=== PATIENT | male | born 1945 ===

== ENCOUNTER 2018-11-27 09:52 | Day surgery (SDC) | payer MEDICARE, OTHER ==
[~2018-11-27] VITALS: Ht 180.3 cm; Wt 119.5 kg
[~2018-11-27 09:52] MED LIST: ACET325 PO; ALEVE220 MG PO; ASPI81CH PO; ATOR10 PO; CHLORPHENIRAMINE PO; CLOB.05TC TOP; CYCL10 PO; DULO30 PO; LOSARTAN POTASS50 MG PO; OMEP40CA12 PO; Ranitidine HCl300 M1 PO; SIME80CH PO
[2018-11-27] MEDS ORDERED: Toprol Xl50 MG PO (11:26)
--- NOTE | 2018-11-27 12:53 | NUR ---
11/27/18 1253 Ana Marshall 6ML NACL USED FOR POLYP REMOVAL
== END 2018-11-27 13:20 | disposition home or self-care (01) ==
LOC: ORSCSDS 09:52
PROVIDERS: Internal Medicine Gastroenterology
PROC: 3E0H8GC Introduction of Other Therapeutic Substance into Lower GI, Via Natural or Artificial Opening Endoscopic (ICD-10-PCS; principal; 2018-11-27 11:30)
PROC: 0DBL8ZX Excision of Transverse Colon, Via Natural or Artificial Opening Endoscopic, Diagnostic (ICD-10-PCS; principal; 2018-11-27 11:30)
DX: Z12.11 Encounter for screening for malignant neoplasm of colon (principal); D12.3 Benign neoplasm of transverse colon; K57.30 Diverticulosis of large intestine without perforation or abscess without bleeding; K64.8 Other hemorrhoids; I10 Essential (primary) hypertension; Z87.891 Personal history of nicotine dependence; E78.5 Hyperlipidemia, unspecified; Z79.899 Other long term (current) drug therapy
CPT/HCPCS: 88305; J2704; J7120

== ENCOUNTER 2025-04-02 08:05 | Inpatient (IN) | payer OTHER, MEDICARE ==
[~2025-04-02] VITALS: Ht 182.9 cm; Wt 119.4 kg
[2025-04-02] VITALS (15 sets, daily range): BP systolic 113–137; BP diastolic 48–89
[~2025-04-02 08:05] MED LIST changes: +Toprol Xl50 MG PO
[2025-04-02] MEDS ORDERED: NS 500 ML IV SCH (09:05)
[2025-04-02] MEDS ORDERED: Ketorolac Tromethamine 30mg Vial IV ONE (09:05)
[2025-04-02] MEDS ORDERED: NS 1,000 ML IV SCH ×2 (09:15→12:50)
[2025-04-02] MEDS ORDERED: Ondansetron HCl 2 MG / ML 2ML Vial IV ONE (09:15)
[2025-04-02 10:27] LABS: Influenza A, PCR NEGATIVE (NEGATIVE); Influenza B, PCR NEGATIVE (NEGATIVE); Resp Syncytial Virus, PCR NEGATIVE (NEGATIVE); SARS-Cov-2 (COVID-19) PCR, MMC NEGATIVE (NEGATIVE)
[2025-04-02 10:37] LABS: BASOPHILS ABSOLUTE AUTO 0.03 K/mm3 (0.00-0.23); BASOPHILS PERCENT AUTO 0 % (0-2); EOSINOPHILS ABSOLUTE AUTO 0.00 K/mm3 (0.00-0.68); EOSINOPHILS PERCENT AUTO 0 % (0-6); Hematocrit 35.3 % (37.0-53.0); Hemoglobin 11.1 g/dL (13.5-17.5); IMMATURE GRAN ABSOLUTE AUTO 0.22 K/mm3 (0.00-0.10); IMMATURE GRAN PERCENT AUTO 2 % (0-1); LYMPHOCYTES ABSOLUTE AUTO 0.25 K/mm3 (0.84-5.20); LYMPHOCYTES PERCENT AUTO 2 % (21-46); MONOCYTES ABSOLUTE AUTO 0.23 K/mm3 (0.16-1.47); MONOCYTES PERCENT AUTO 2 % (4-13); Mean Corpuscular HGB Conc 31.4 g/dL (31.5-36.5); Mean Corpuscular Volume 93 fL (80-100); NEUTROPHILS ABSOLUTE AUTO 12.02 K/mm3 (1.96-9.15); NEUTROPHILS PERCENT AUTO 94 % (41-73); NRBC ABSOLUTE 0.00 K/mm3 (0.00-0.02); NRBC Auto 0.0 /100 WBC (0.0-0.2); Platelet Count 219 K/mm3 (150-400); RDW Coefficient Variation 12.8 % (11.7-14.2); RDW Standard Deviation 43.8 fL (35.1-46.3)
[2025-04-02 11:00] LABS: Alanine Aminotransfer (ALT/SGP 28.0 U/L (12-78); Albumin, Blood 3.0 g/dL (3.4-5.0); Albumin/Globulin Ratio 0.8 (0.8-1.8); Anion Gap 11.0 mmol/L (3-11); Aspartate Aminotrans (AST/SGOT 32.0 U/L (12-37); Bilirubin, Total 1.0 mg/dL (0.1-1.0); Blood Urea Nitrogen 21.0 mg/dL (8-24); CO2, Blood 25.0 mmol/L (21-32); Calcium, Blood 9.0 mg/dL (8.5-10.1); Chloride, Blood 103.0 mmol/L (98-108); Creatinine, Blood 1.51 mg/dL (0.60-1.20); Globulin, Blood 3.8 g/dL (2.2-4.0); Glucose, Blood 104.0 mg/dL (70-99); Magnesium, Blood 2.1 mg/dL (1.6-2.4); Potassium, Blood 3.7 mmol/L (3.5-5.5); Sodium, Blood 135.0 mmol/L (136-145); Total Protein, Blood 6.8 g/dL (6.4-8.2)
[2025-04-02] MEDS ORDERED: DiphenhydrAMINE HCl 50 MG/ML 1ML Vial IV ONE (11:20)
[2025-04-02] MEDS ORDERED: Piperacillin/Tazobactam Sod 3.375 GM in NS 100 ML IV ONE (12:50)
[2025-04-02 12:52] LABS: Source, Urine Clean Catch
[2025-04-02 13:02] LABS: Glucose Qualitative, Urine Neg (Neg); Ketones, Urine 1+ (Neg); Leukocyte Esterase, Urine 1+ (Neg); Protein, Urine 3+ (Neg); Specific Gravity, Urine 1.020 (1.003-1.022); Urobilinogen, Urine 1+ (Normal)
[2025-04-02] MEDS ORDERED: Ondansetron HCl 2 MG / ML 2ML Vial IV PRN ×2 (13:15→17:15)
[2025-04-02] MEDS ORDERED: FLU VACC TS2025-26(6MOS UP)/PF 45 MCG/0.5 ML SYRINGE IM SCH (13:15)
[2025-04-02 13:26] LABS: Bilirubin, Urine 1+ (Neg); Color, Urine Orange (P-Yellow)
[2025-04-02 13:30] LABS: Red Blood Cells, Urine 0-2 /hpf (0-2)
[2025-04-02] MEDS ORDERED: CefTRIAXone Sodium 1,000 MG in NS 100 ML IV SCH (13:30)
[2025-04-02] MEDS ORDERED: MetroNIDAZOLE 500MG/NS 100 ml 100 ML IV SCH (14:00)
[2025-04-02] MEDS ORDERED: PROZAC2010 PO (14:10)
[2025-04-02] MEDS ORDERED: EUTHYROX50 MC1 PO (14:11)
[2025-04-02] MEDS ORDERED: METOPROLOL SUCC25 MG PO (14:12)
[2025-04-02] MEDS ORDERED: Bupivacaine 0.5% HCl 5 MG/ML 30MLVIAL ONE (14:47)
[2025-04-02] MEDS ORDERED: Etomidate 2MG / ML 10ML Vial ONE (15:01)
[2025-04-02] MEDS ORDERED: Metoclopramide HCl 5MG / ML 2ML Vial ONE (15:10)
[2025-04-02] MEDS ORDERED: Ondansetron HCl 2 MG / ML 2ML Vial ONE (15:10)
[2025-04-02] MEDS ORDERED: FentaNYL Citrate 50 MCG/ML 2 ML Injection ONE (15:11)
[2025-04-02] MEDS ORDERED: Labetalol HCL 5 MG/ML 4ML Injection (Single Dose) ONE (15:46)
[2025-04-02] MEDS ORDERED: Sugammadex Sodium 200 MG/2ML SDV (100 MG/ML) ONE (16:38)
[2025-04-02] MEDS ORDERED: HYDROcodone 5-APAP 325 TAB PO PRN (17:05)
[2025-04-02] MEDS ORDERED: FentaNYL Citrate 50 MCG/ML 2 ML Injection IV PRN ×4 (17:10→17:25)
[2025-04-02] MEDS ORDERED: Metoclopramide HCl 5MG / ML 2ML Vial IV PRN (17:15)
[2025-04-02] MEDS ORDERED: Lactobacil 2-S.Thermo-Bifido 1 1 Cap PO SCH (21:00)
[2025-04-03 03:46] VITALS: BP 135/68
[2025-04-03 04:06] LABS: Hematocrit 35.2 % (37.0-53.0); Hemoglobin 10.9 g/dL (13.5-17.5); Mean Corpuscular HGB Conc 31.0 g/dL (31.5-36.5); Mean Corpuscular Volume 94 fL (80-100); NRBC ABSOLUTE 0.00 K/mm3 (0.00-0.02); NRBC Auto 0.0 /100 WBC (0.0-0.2); Platelet Count 220 K/mm3 (150-400); RDW Coefficient Variation 13.1 % (11.7-14.2); RDW Standard Deviation 45.4 fL (35.1-46.3)
[2025-04-03 04:40] LABS: Alanine Aminotransfer (ALT/SGP 91.0 U/L (12-78); Albumin, Blood 2.7 g/dL (3.4-5.0); Albumin/Globulin Ratio 0.7 (0.8-1.8); Anion Gap 8.0 mmol/L (3-11); Aspartate Aminotrans (AST/SGOT 113.0 U/L (12-37); Bilirubin, Total 0.5 mg/dL (0.1-1.0); Blood Urea Nitrogen 24.0 mg/dL (8-24); CO2, Blood 25.0 mmol/L (21-32); Calcium, Blood 8.6 mg/dL (8.5-10.1); Chloride, Blood 108.0 mmol/L (98-108); Creatinine, Blood 0.92 mg/dL (0.60-1.20); Globulin, Blood 4.1 g/dL (2.2-4.0); Glucose, Blood 173.0 mg/dL (70-99); Magnesium, Blood 2.3 mg/dL (1.6-2.4); Potassium, Blood 4.7 mmol/L (3.5-5.5); Sodium, Blood 136.0 mmol/L (136-145); Total Protein, Blood 6.8 g/dL (6.4-8.2)
[2025-04-03 04:43] LABS: BAND PERCENT MAN 20 % (0-8); BASOPHILS ABSOLUTE MAN 0.00 K/mm3 (0.00-0.23); BASOPHILS PERCENT MAN 0 % (0-2); EOSINOPHILS ABSOLUTE MAN 0.00 K/mm3 (0.00-0.68); EOSINOPHILS PERCENT MAN 0 % (0-6); LYMPHOCYTES ABSOLUTE MAN 0.70 K/mm3 (0.84-5.20); LYMPHOCYTES PERCENT MAN 4 % (21-46); MONOCYTES ABSOLUTE MAN 0.52 K/mm3 (0.16-1.47); MONOCYTES PERCENT MAN 3 % (4-13); MYELOCYTE ABSOLUTE MAN 0.35 K/mm3 (0.00-0.00); MYELOCYTE PERCENT MAN 2 % (0-0); NEUTROPHILS ABSOLUTE MAN 15.96 K/mm3 (1.96-9.15); SEG NEUTROPHILS PERCENT MAN 71 % (41-73)
--- NOTE | 2025-04-03 05:44 | NUR ---
SHIFT SUMMARY PT A&O X3, STATES THAT IS HIS BASELINE. PT HAS BEEN DROWSY SINCE SURGERY YESTERDAY BUT AWAKENS TO VERBAL STIMULI. VSS, AFEBRILE, SPO2 >92% ON 5L OXIMASK. RECTAL THERMOMETER PLACED DUE TO INACCURATE TEMPORAL TEMPERATURE DUE TO DIAPHORESIS. HE DENIES FEELING SOB. DENIES CP OR PRESSURE. 4 INCISION SITE ON ABDOMEN, ARVIND DRAIN TO RIGHT ABDOMEN. PAIN MEDICATED PER EMAR. CALL LIGHT IN REACH, BREATHING IS EVEN AND UNLABORED.
[2025-04-03 07:33] VITALS: BP 141/69
[2025-04-03] MEDS ORDERED: CefTRIAXone Sodium 2,000 MG in NS 100 ML IV ONE (08:15)
[2025-04-03 08:57] LABS: EOS, Urine 0.0 % (0.0-1.0); Eosinophils-Raw #,Urine 0; White Blood Cells Urine 50-100 /hpf (0-5)
[2025-04-03] MEDS ORDERED: Pantoprazole Sodium 40 MG Injection IV SCH (09:00)
[2025-04-03] MEDS ORDERED: Enoxaparin 40 MG/0.4 ML SYR SC SCH (09:00)
[2025-04-03 11:07] VITALS: BP 137/71
--- NOTE | 2025-04-03 14:22 | NUR ---
MORNING NOTE PT IS A&OX 3-4, COOPERATIVE WITH CARE, AND ABLE TO APPROPRIATELY EXPRESS NEEDS. HE TRANSFERS IN WITH 1-2 ASST. PT WAS ON 5L O2 VIA OXI MASK THIS AM AT SHIFT CHANGE. TANK ZAVALETA AND THIS RN TITRATED HIM DOWN TO RM AIR THIS MORNING, BUT HE SATTED AT ABOUT 89-90%, SO HE WAS RETURNED TO 1L O2 NC. LATER THIS MORNING, PT DESATTED TO 88% WHILE SLEEPING AND WAS INCREASED TO 2L O2 NC WHERE HE RETURNED TO SATTING ABOVE 92%. PT REMAINS ON 2L AT THIS TIME DUE TO FREQUENT NAPPING OFF AND ON. PT IS 1 DAY POST OP FOR LAP. MARVIN AND HAS A ARVIND DRAIN IN PLACE AT R. ABD DRAINING SEROSANGUINEOUS FLUID. THREE LAP. INCISION SITES ON ABD ARE C/D/I. PT HAS HELD DOWN CLEAR FLUIDS WELL AND CAN ADVANCE DIET TOLERATED. SINUS RHYTHM MAINTAINED IN 70-80s WITH STABLE BPs. PT TO TRANSFER TO SURGICAL UNIT RM 216 THIS SHIFT. IS AT BEDISDE AND UPDATED ON CARE. SEE NOTES FOR UPDATES.
[2025-04-03 15:53] VITALS: BP 143/78
--- NOTE | 2025-04-03 17:50 | NUR ---
TRANSFER: REPORT RECEIVED FROM [employer] WORKER. PT TO UNIT AT ABOUT 1730. A/O, PT FOLLOWS COMMANDS. SURGICAL SITES WNL, ARVIND COMPRESSED. PT NOW SITTING UP TO EAT FULL LIQUIDS. CALL LIGHT IN REACH
[2025-04-03 20:01] VITALS: BP 132/71
[2025-04-03] MEDS ORDERED: Lactobacil 2-S.Thermo-Bifido 1 1 Cap PO SCH (21:00)
[2025-04-04 03:56] VITALS: BP 140/65
[2025-04-04 05:07] LABS: BASOPHILS ABSOLUTE AUTO 0.03 K/mm3 (0.00-0.23); BASOPHILS PERCENT AUTO 0 % (0-2); EOSINOPHILS ABSOLUTE AUTO 0.00 K/mm3 (0.00-0.68); EOSINOPHILS PERCENT AUTO 0 % (0-6); Hematocrit 32.4 % (37.0-53.0); Hemoglobin 10.2 g/dL (13.5-17.5); IMMATURE GRAN ABSOLUTE AUTO 0.08 K/mm3 (0.00-0.10); IMMATURE GRAN PERCENT AUTO 1 % (0-1); LYMPHOCYTES ABSOLUTE AUTO 0.68 K/mm3 (0.84-5.20); LYMPHOCYTES PERCENT AUTO 5 % (21-46); MONOCYTES ABSOLUTE AUTO 1.17 K/mm3 (0.16-1.47); MONOCYTES PERCENT AUTO 8 % (4-13); Mean Corpuscular HGB Conc 31.5 g/dL (31.5-36.5); Mean Corpuscular Volume 93 fL (80-100); NEUTROPHILS ABSOLUTE AUTO 12.47 K/mm3 (1.96-9.15); NEUTROPHILS PERCENT AUTO 86 % (41-73); NRBC ABSOLUTE 0.00 K/mm3 (0.00-0.02); NRBC Auto 0.0 /100 WBC (0.0-0.2); Platelet Count 217 K/mm3 (150-400); RDW Coefficient Variation 13.2 % (11.7-14.2); RDW Standard Deviation 44.9 fL (35.1-46.3)
[2025-04-04 05:30] LABS: Alanine Aminotransfer (ALT/SGP 66.0 U/L (12-78); Albumin, Blood 2.3 g/dL (3.4-5.0); Albumin/Globulin Ratio 0.6 (0.8-1.8); Anion Gap 5.0 mmol/L (3-11); Aspartate Aminotrans (AST/SGOT 53.0 U/L (12-37); Bilirubin, Total 0.3 mg/dL (0.1-1.0); Blood Urea Nitrogen 26.0 mg/dL (8-24); CO2, Blood 28.0 mmol/L (21-32); Calcium, Blood 8.3 mg/dL (8.5-10.1); Chloride, Blood 107.0 mmol/L (98-108); Creatinine, Blood 0.69 mg/dL (0.60-1.20); Globulin, Blood 3.6 g/dL (2.2-4.0); Glucose, Blood 128.0 mg/dL (70-99); Potassium, Blood 4.2 mmol/L (3.5-5.5); Sodium, Blood 136.0 mmol/L (136-145); Total Protein, Blood 5.9 g/dL (6.4-8.2)
[2025-04-04 07:33] VITALS: BP 167/77
--- NOTE | 2025-04-04 07:50 | NUR ---
SHIFT SUMMARY NOC. PT POD 2 FOR LAP MARVIN. LAP SITES C/D/I, ARVIND PRODUCING S/S OUTPUT. PT MEDICATED FOR PAIN WITH REPORTED RELIEF OF SX. PT VOIDING URINE. MAKES NEEDS KNOWN, CALL LIGHT IN REACH.
[2025-04-04 13:17] LABS: Influenza A, PCR NEGATIVE (NEGATIVE); Influenza B, PCR NEGATIVE (NEGATIVE); Resp Syncytial Virus, PCR NEGATIVE (NEGATIVE); SARS-Cov-2 (COVID-19) PCR, MMC NEGATIVE (NEGATIVE)
[2025-04-04 15:28] VITALS: BP 133/64
--- NOTE | 2025-04-04 16:17 | NUR ---
SHIFT SUMMARY POD2 LAP MARVIN WITH ARVIND DRAIN. LAPS SITES X4 C/D/I. PATIENT IS AOX4, SBA TO IND IN ROOM. ON 1L NC, CONT. PULSE OX IN PLACE. SATS REMAIN 90-93%. PATIENT USING IS AT BEDSIDE AND UP IN THE CHAIR T/O DAY. PATIENT SHOWERED TODAY, SPOUSE WAS IN TO VISIT. CONTINUE IV ABX, PAIN MANAGED WITH NORCO PO. VOIDING, REPORTS PASSING FLATUS. DENIES N/V. USES CALL LIGHT APPROPRIATELY. CALL LIGHT IN REACH VSS.
[2025-04-04 19:37] VITALS: BP 123/67
[2025-04-05 04:27] VITALS: BP 125/97
[2025-04-05 07:10] VITALS: BP 152/88
[2025-04-05 07:42] LABS: BASOPHILS ABSOLUTE AUTO 0.02 K/mm3 (0.00-0.23); BASOPHILS PERCENT AUTO 0 % (0-2); EOSINOPHILS ABSOLUTE AUTO 0.10 K/mm3 (0.00-0.68); EOSINOPHILS PERCENT AUTO 1 % (0-6); Hematocrit 35.3 % (37.0-53.0); Hemoglobin 10.9 g/dL (13.5-17.5); IMMATURE GRAN ABSOLUTE AUTO 0.10 K/mm3 (0.00-0.10); IMMATURE GRAN PERCENT AUTO 1 % (0-1); LYMPHOCYTES ABSOLUTE AUTO 0.93 K/mm3 (0.84-5.20); LYMPHOCYTES PERCENT AUTO 10 % (21-46); MONOCYTES ABSOLUTE AUTO 0.97 K/mm3 (0.16-1.47); MONOCYTES PERCENT AUTO 10 % (4-13); Mean Corpuscular HGB Conc 30.9 g/dL (31.5-36.5); Mean Corpuscular Volume 95 fL (80-100); NEUTROPHILS ABSOLUTE AUTO 7.62 K/mm3 (1.96-9.15); NEUTROPHILS PERCENT AUTO 78 % (41-73); NRBC ABSOLUTE 0.00 K/mm3 (0.00-0.02); NRBC Auto 0.0 /100 WBC (0.0-0.2); Platelet Count 230 K/mm3 (150-400); RDW Coefficient Variation 13.2 % (11.7-14.2); RDW Standard Deviation 46.0 fL (35.1-46.3)
[2025-04-05 08:03] LABS: Alanine Aminotransfer (ALT/SGP 59.0 U/L (12-78); Albumin, Blood 2.6 g/dL (3.4-5.0); Albumin/Globulin Ratio 0.7 (0.8-1.8); Anion Gap 7.0 mmol/L (3-11); Aspartate Aminotrans (AST/SGOT 37.0 U/L (12-37); Bilirubin, Total 0.5 mg/dL (0.1-1.0); Blood Urea Nitrogen 22.0 mg/dL (8-24); CO2, Blood 29.0 mmol/L (21-32); Calcium, Blood 8.3 mg/dL (8.5-10.1); Chloride, Blood 105.0 mmol/L (98-108); Creatinine, Blood 0.76 mg/dL (0.60-1.20); Globulin, Blood 3.9 g/dL (2.2-4.0); Glucose, Blood 91.0 mg/dL (70-99); Potassium, Blood 4.0 mmol/L (3.5-5.5); Sodium, Blood 137.0 mmol/L (136-145); Total Protein, Blood 6.5 g/dL (6.4-8.2)
--- NOTE | 2025-04-05 10:39 | NUR ---
DR MOTTA BY, ARVIND DRAIN REMOVED.
[2025-04-05] MEDS ORDERED: CefTRIAXone Sodium 2,000 MG in NS 100 ML IV SCH (12:41)
[2025-04-05] MEDS ORDERED: ALUM-MAG HYDROX30 M2 PO (13:17)
--- NOTE | 2025-04-05 13:34 | NUR ---
DISCHARGE NOTE PT IS A/OX4. PT IS TOLERATING PO INTAKE DENIES N/V. PAIN IS MANAGED PER EMAR. IV REMOVED. DC EDUCATION GIVEN TO PT AND SPOUSE. BOTH VERBALIZED UNDERSTANDING. PT HAS ALL PERSONAL BELONGINGS. PT REFUSED WC RIDE OUT. SURGICAL SITES C/D/I.
== END 2025-04-05 13:40 | disposition home or self-care (01) | DRG 853 ==
LOC: ER 08:05 → ERHOLD 08:06 → PCU 08:06 → SURS 04-03 14:22 → PCU 04-03 14:22 → SURS 04-03 17:04
PROVIDERS: Student in an Organized Health Care Education/Training Program; Surgery; ADMIT Internal Medicine
PROC: 3E03329 Introduction of Other Anti-infective into Peripheral Vein, Percutaneous Approach (ICD-10-PCS; 2025-04-02)
PROC: 0FT44ZZ Resection of Gallbladder, Percutaneous Endoscopic Approach (ICD-10-PCS; principal; 2025-04-02 15:30)
DX: A41.51 Sepsis due to Escherichia coli [E. coli] (principal); J96.01 Acute respiratory failure with hypoxia; N17.9 Acute kidney failure, unspecified; K80.00 Calculus of gallbladder with acute cholecystitis without obstruction; N39.0 Urinary tract infection, site not specified; R65.20 Severe sepsis without septic shock; I10 Essential (primary) hypertension; D64.9 Anemia, unspecified; M54.50 Low back pain, unspecified; G89.29 Other chronic pain; E03.9 Hypothyroidism, unspecified; E78.5 Hyperlipidemia, unspecified; K21.9 Gastro-esophageal reflux disease without esophagitis; Z87.891 Personal history of nicotine dependence; Z79.82 Long term (current) use of aspirin; Z79.899 Other long term (current) drug therapy; Z98.890 Other specified postprocedural states; Z88.5 Allergy status to narcotic agent; Z88.8 Allergy status to other drugs, medicaments and biological substances
CPT/HCPCS: 36415; 71045; 71046; 74177; 80053; 81001; 82570; 83605; 83690; 83735; 83880; 84300; 84540; 85025; 87040; 87077; 87086; 87186; 87205; 87637; 88304; 93005; 93010; 94760; 94761; 94762; 96361; 96374-59; 96375; 99285-25; A9270; G0378; J0696; J1200; J1650; J1885; J2405; J2470; J2543; J2765; J2919; J3010; J7030; J7120; Q9967

== ENCOUNTER 2025-04-16 10:45 | Emergency (ER) | payer OTHER ==
[~2025-04-16] VITALS: Ht 177.8 cm; Wt 117.9 kg
[~2025-04-16 10:45] MED LIST changes: +ALUM-MAG HYDROX30 M2 PO; +EUTHYROX50 MC1 PO; +METOPROLOL SUCC25 MG PO; +PROZAC2010 PO
[2025-04-16 11:41] LABS: BASOPHILS ABSOLUTE AUTO 0.12 K/mm3 (0.00-0.23); BASOPHILS PERCENT AUTO 2 % (0-2); EOSINOPHILS ABSOLUTE AUTO 0.24 K/mm3 (0.00-0.68); EOSINOPHILS PERCENT AUTO 4 % (0-6); Hematocrit 37.8 % (37.0-53.0); Hemoglobin 11.8 g/dL (13.5-17.5); IMMATURE GRAN ABSOLUTE AUTO 0.03 K/mm3 (0.00-0.10); IMMATURE GRAN PERCENT AUTO 1 % (0-1); LYMPHOCYTES ABSOLUTE AUTO 1.63 K/mm3 (0.84-5.20); LYMPHOCYTES PERCENT AUTO 26 % (21-46); MONOCYTES ABSOLUTE AUTO 0.72 K/mm3 (0.16-1.47); MONOCYTES PERCENT AUTO 12 % (4-13); Mean Corpuscular HGB Conc 31.2 g/dL (31.5-36.5); Mean Corpuscular Volume 90 fL (80-100); NEUTROPHILS ABSOLUTE AUTO 3.50 K/mm3 (1.96-9.15); NEUTROPHILS PERCENT AUTO 56 % (41-73); NRBC ABSOLUTE 0.00 K/mm3 (0.00-0.02); NRBC Auto 0.0 /100 WBC (0.0-0.2); Platelet Count 656 K/mm3 (150-400); RDW Coefficient Variation 13.4 % (11.7-14.2); RDW Standard Deviation 44.4 fL (35.1-46.3)
[2025-04-16 12:38] LABS: Alanine Aminotransfer (ALT/SGP 56.0 U/L (12-78); Albumin, Blood 3.2 g/dL (3.4-5.0); Albumin/Globulin Ratio 0.7 (0.8-1.8); Anion Gap 8.0 mmol/L (3-11); Aspartate Aminotrans (AST/SGOT 37.0 U/L (12-37); Bilirubin, Total 0.3 mg/dL (0.1-1.0); Blood Urea Nitrogen 18.0 mg/dL (8-24); CO2, Blood 26.0 mmol/L (21-32); Calcium, Blood 9.5 mg/dL (8.5-10.1); Chloride, Blood 105.0 mmol/L (98-108); Creatinine, Blood 0.81 mg/dL (0.60-1.20); Globulin, Blood 4.7 g/dL (2.2-4.0); Glucose, Blood 96.0 mg/dL (70-99); Potassium, Blood 4.2 mmol/L (3.5-5.5); Sodium, Blood 135.0 mmol/L (136-145); Total Protein, Blood 7.9 g/dL (6.4-8.2)
[2025-04-16] MEDS ORDERED: MECL25 PO (13:13)
[2025-04-16] MEDS ORDERED: Mupirocin22 GM TOP (13:13)
[2025-04-16 13:45] VITALS: BP 130/67
== END 2025-04-16 14:02 | disposition home or self-care (01) ==
LOC: ER 10:45
PROVIDERS: Student in an Organized Health Care Education/Training Program
DX: R42 Dizziness and giddiness (principal); I10 Essential (primary) hypertension; Z91.041 Radiographic dye allergy status; Z88.5 Allergy status to narcotic agent; Z79.899 Other long term (current) drug therapy; Z87.891 Personal history of nicotine dependence
CPT/HCPCS: 71046; 80053; 85025; 93005; 93010; 99284-25